=== PATIENT | female | born 1950 | race Caucasian/White ===

== ENCOUNTER 2016-10-14 08:57 | Emergency (ER) ==
[2016-10-14 09:02] VITALS: BP 160/96; TEMP 97.9; BMI 23.0
--- NOTE | 2016-10-14 09:15 | ED.PDOC ---
General ED Provider: Dr. KRYSTAL ARCE Chief Complaint: Nosebleed Stated Complaint: nosebleed Time Seen by Physician: 09:00 (statrted about midnight gushed then stopped about 3 am now very slow bleed ) Mode of Arrival: Walk-In Information Source: Patient Exam Limitations: No limitations Nursing and Triage Documentation Reviewed and Agree: No EENT Complaint Exam - Nasal Complaint/Exam Onset/Duration: 9 hours ago Symptoms Are: Still present Timing: Intermittent Initial Severity: Mild Current Severity: Mild Location: Bilateral Character: Light bleeding Aggravating: Reports: None Alleviating: Reports: None Associated Signs and Symptoms: Denies: Nasal congestion, Bruising, Hematuria, Hematochezia, Sinus pain, Nasal discharge, Foreign body, Abnormal coags Nasal Surgical History: Reports: None Bleeding Present At: Right nostril, Left nostril Foreign Body Present: No Oropharynx Findings: Active bleeding (very slow) Septal Hematoma: No Differential Diagnoses: Coagulopathy Review of Systems - Review Of Systems Constitutional: Reports: No symptoms Eyes: Reports: No symptoms Ears, Nose, Mouth, Throat: Reports: Nose discharge Respiratory: Reports: No symptoms Cardiac: Reports: No symptoms GI: Reports: No symptoms : Reports: No symptoms Musculoskeletal: Reports: No symptoms Skin: Reports: No symptoms Neurological: Reports: No symptoms Endocrine: Reports: No symptoms Hematologic/Lymphatic: Reports: No symptoms All Other Systems: Reviewed and Negative Past Medical History - Past Medical History Previously Healthy: No Endocrine: Reports: None Cardiovascular: Reports: Hypertension Respiratory: Reports: COPD Hematological: Reports: None Gastrointestinal: Reports: None Genitourinary: Reports: None Neuro/Psych: Reports: None Musculoskeletal: Reports: None Cancer: Reports: Breast Last Menstrual Period: N/A - Surgical History General Surgical History: Reports: Unknown - Family History Family History: Reports: Unknown (smokes over 2 packs/day) - Social History Smoking Status: Current every day smoker Hx Substance Use: No Alcohol Screening: Occasionally Physical Exam - Physical Exam Appearance: Well-appearing, No pain distress, Well-nourished Eyes: VESNA, EOMI, Conjunctiva clear ENT: Epistaxis Respiratory: Airway patent, Breath sounds clear, Breath sounds equal, Respirations nonlabored Cardiovascular: RRR, Pulses normal, No rub, No murmur GI/: Soft, Nontender, No masses, Bowel sounds normal, No Organomegaly Musculoskeletal: Normal strength, ROM intact, No edema, No calf tenderness Skin: Warm, Dry, Normal color Neurological: Sensation intact, Motor intact, Reflexes intact, Cranial nerves intact, Alert, Oriented Psychiatric: Affect appropriate, Mood appropriate Procedures - Nasal Packing/Cautery Suction Used: No Hemostasis Obtained: Yes (please refer to ENT NOTE) Physician Notification - Case Discussed Physician Notified: blanca MENJIVAR Time of Notification: : Critical Care Note - Critical Care Note Total Time (mins): 0 Course - Course Orders, Labs, Meds: Orders Category Date Time Status CBC W/ AUTO DIFF Stat LAB 10/14/16 09:10 Ordered PARTIAL THROMBOPLASTIN TIME Stat LAB 10/14/16 09:10 Ordered PT WITH INR Stat LAB 10/14/16 09:10 Ordered Vital Signs: Temp Pulse Resp BP Pulse Ox 10/14/16 08:59 97.9 F 90 16 160/96 H 90 L Departure - Departure Time of Disposition: 10:00 (RETURN ON SUNDAY FPR PACK REMOVAL) Disposition: HOME SELF-CARE Discharge Problem: Epistaxis not due to trauma Instructions: Nosebleed (ED) Condition: Good Pt referred to PMD for follow-up: No Additional Instructions: Please call your Family Physician as soon as possible to schedule a follow-up appointment. return on sunday in the morning to see dr. arce to have nasal packing removed. if any problems call. Allergies/Adverse Reactions: Allergies codeine Adverse Reaction (Verified 10/14/16 09:02) Home Medications: Ambulatory Orders Amlodipine Besylate [Norvasc] 2.5 mg PO DAILY 10/14/16 Anastrozole [Arimidex] 1 mg PO DAILY 10/14/16 Irbesartan 300 mg PO DAILY 10/14/16 Disposition Discussed With: Patient, Family
[2016-10-14 09:41] LABS: BASOPHILS # (AUTO) 0.1 K/uL (0-0.2); BASOPHILS % (AUTO) 0.8 % (0.0-3.0); EOSINOPHILS # (AUTO) 0.1 K/ul (0.0-0.7); EOSINOPHILS % (AUTO) 1.4 % (0.0-7.0); HEMATOCRIT 49.8 % (37.0-47.0); HEMOGLOBIN 16.4 g/dl (12.0-16.0); IMMATURE GRANULOCYTE % (AUTO) 0.3 % (0.0-5.0); LYMPHOCYTES # (AUTO) 1.1 K/uL (0.60-3.4); LYMPHOCYTES % (AUTO) 14.9 (10.0-50.0); MEAN CORPUSCULAR HEMOGLOBIN 31.3 pg (27.0-31.0); MEAN CORPUSCULAR HGB CONC 32.9 (31.8-35.4); MONOCYTES # (AUTO) 0.7 K/uL (0.4-2.0); MONOCYTES % (AUTO) 9.2 (0-10); NEUTROPHILS # (AUTO) 5.6 K/ul (2.0-6.9); NEUTROPHILS % (AUTO) 73.4; PLATELET COUNT 247 10^3/uL (140-440); RED BLOOD COUNT 5.24 10^6/ul (4.20-5.40); WHITE BLOOD COUNT 7.59 K/ul (4.6-10.2)
[2016-10-14 10:06] LABS: PARTIAL THROMBOPLASTIN TIME 23.7 SEC (23.9-40.0); PROTHROMBIN TIME 10.5 SEC (9.3-11.0)
== END 2016-10-14 10:20 | disposition home or self-care (01) ==
LOC: ED 08:57
DX: R04.0 Epistaxis (principal); I10 Essential (primary) hypertension; F17.210 Nicotine dependence, cigarettes, uncomplicated
CPT/HCPCS: 36415; 85025; 85610; 85730; 99283